=== PATIENT | female | born 1945 | race American Indian/Alaskan Native ===

== ENCOUNTER → 2017-01-06 | Outpatient (CLI) | payer MEDICARE ==
[~2017-01-06] MED LIST: ALBU18HF INH; BUDE10.2 INH; LINA145C PO; LOVA20TA2 PO; LOVA40TA2 PO
== END | disposition home or self-care (01) ==
LOC: CFH 08:06
PROVIDERS: ATTEND Internal Medicine
DX: Z13.820 Encounter for screening for osteoporosis (principal); M81.0 Age-related osteoporosis without current pathological fracture; E78.5 Hyperlipidemia, unspecified; J44.9 Chronic obstructive pulmonary disease, unspecified; E03.9 Hypothyroidism, unspecified; E87.5 Hyperkalemia; Z72.0 Tobacco use
CPT/HCPCS: 77080

== ENCOUNTER → 2017-07-25 | Outpatient (CLI) | payer MEDICARE ==
[~2017-07-25] MED LIST changes: +CALC-545 PO; +CHOL2000 PO; +GABA300C10 PO
== END ==
LOC: CFH 09:50
PROVIDERS: ATTEND Physician Assistant
DX: J84.10 Pulmonary fibrosis, unspecified (principal); M54.89 Other dorsalgia; M81.0 Age-related osteoporosis without current pathological fracture; E78.5 Hyperlipidemia, unspecified; D58.2 Other hemoglobinopathies; Z72.0 Tobacco use; Z13.220 Encounter for screening for lipoid disorders; Z12.11 Encounter for screening for malignant neoplasm of colon; Z12.39 Encounter for other screening for malignant neoplasm of breast; Z12.4 Encounter for screening for malignant neoplasm of cervix; K59.00 Constipation, unspecified; I34.1 Nonrheumatic mitral (valve) prolapse; E87.5 Hyperkalemia; E03.9 Hypothyroidism, unspecified; E83.110 Hereditary hemochromatosis; M25.539 Pain in unspecified wrist; Z09 Encounter for follow-up examination after completed treatment for conditions other than malignant neoplasm; J18.9 Pneumonia, unspecified organism; J44.1 Chronic obstructive pulmonary disease with (acute) exacerbation
CPT/HCPCS: 71020

== ENCOUNTER 2018-01-02 05:42 | Emergency (ER) | payer MEDICARE ==
[~2018-01-02] VITALS: Ht 157.5 cm; Wt 55.0 kg
[~2018-01-02 05:42] MED LIST changes: +ALBU2.5V NPPB; +AZIT500T5 PO; +ERGO500017 PO; +FENT1PAT75 TD; +FLUT1AER INH; +METH750T2 PO; +NICO-486 TD; +POLY17PO5 PO; +PRED10TA PO; +TIOT18CA INH; +TRAM50TA2 PO
[2018-01-02] MEDS ORDERED: HYDROmorphone 1 MG/ML, 1ML IV ONE (06:00)
[2018-01-02] MEDS ORDERED: SODIUM CHLORIDE 0.9%, 500ML IVBOLUS ONE (06:00)
[2018-01-02] MEDS ORDERED: HYDROmorphone 2 MG/ML, 1ML ONE (06:02)
[2018-01-02 06:13] LABS: MEAN CORPUSCULAR HEMOGLOBIN 32.9 pg (27.0-34.8); MEAN CORPUSCULAR HGB CONC 33.8 g/dL (32.4-35.8); MEAN CORPUSCULAR VOLUME 97.3 fL (80-100); MEAN PLATELET VOLUME 8.2 fL (7.4-10.4); PLATELET COUNT 414 x10^3/uL (130-400); RED BLOOD COUNT 4.63 x10^6/uL (3.82-5.3); RED CELL DISTRIBUTION WIDTH 13.9 % (9.6-15.2)
[2018-01-02 06:24] LABS: ALBUMIN 3.2 g/dL (3.4-5.0); ANION GAP 7 mmol/L (5-15); CALCIUM 9.1 mg/dL (8.5-10.1); CHLORIDE 108 mmol/L (98-107); CREATININE 0.84 mg/dL (0.55-1.02)
[2018-01-02 06:26] LABS: MD YES
[2018-01-02 06:27] LABS: LYMPH#(MANUAL) 0.55 x10^3/uL (1-3.4); LYMPHS% (MANUAL) 3 % (22-44); MONOS% (MANUAL) 12 % (2-9); SEG#(MANUAL) 15.56 x10^3/uL (1.8-6.8); SEGS% (MANUAL) 85 % (42-75)
[2018-01-02 06:28] LABS: <PLATELET ESTIMATE> INCREASED; <RBC MORPHOLOGY> NORMAL; LARGE PLATELETS 1+
[2018-01-02 08:00] VITALS: BP 105/51
[2018-01-03] MEDS ORDERED: LINA145C PO (10:32)
[2018-01-09] MEDS ORDERED: AMOX1TAB12 PO (12:42)
[2018-01-09] MEDS ORDERED: DOXY100T PO (12:42)
[2018-01-09] MEDS ORDERED: OMEP-110 PO (12:42)
== END 2018-01-02 09:48 | disposition home or self-care (01) ==
LOC: ED 07:21 → UNDOADMIN 07:40 → EDIP 07:40 → 3NW 08:15 → EDIP 10:33
DX: S22.9XXA Fracture of bony thorax, part unspecified, initial encounter for closed fracture (principal); X58.XXXA Exposure to other specified factors, initial encounter; Y93.89 Activity, other specified; Y92.89 Other specified places as the place of occurrence of the external cause; Y99.8 Other external cause status
CPT/HCPCS: 36415; 71045; 72128; 72131; 80048; 82040; 85025; 96374; 99285; J1170; J7040; 96361

== ENCOUNTER → 2018-01-12 | Outpatient (CLI) | payer MEDICARE ==
[~2018-01-12] MED LIST changes: +AMOX1TAB12 PO; +DOXY100T PO; +OMEP-110 PO
== END | disposition home or self-care (01) ==
LOC: CFH 10:20
PROVIDERS: ATTEND Nurse Practitioner Primary Care
DX: J18.9 Pneumonia, unspecified organism (principal); M54.89 Other dorsalgia; M81.0 Age-related osteoporosis without current pathological fracture; E78.5 Hyperlipidemia, unspecified; D58.2 Other hemoglobinopathies; K59.00 Constipation, unspecified; R00.2 Palpitations; E87.5 Hyperkalemia; I34.1 Nonrheumatic mitral (valve) prolapse; E03.9 Hypothyroidism, unspecified; M25.539 Pain in unspecified wrist; E83.110 Hereditary hemochromatosis; J44.1 Chronic obstructive pulmonary disease with (acute) exacerbation; R06.83 Snoring; Z98.61 Coronary angioplasty status
CPT/HCPCS: 71046

== ENCOUNTER → 2018-03-02 | Outpatient (CLI) | payer MEDICARE | END | disposition home or self-care (01) | LOC: CFH 08:25 | PROVIDERS: ATTEND Physician Assistant | DX: J18.9 Pneumonia, unspecified organism (principal); M54.89 Other dorsalgia; M81.0 Age-related osteoporosis without current pathological fracture; E78.5 Hyperlipidemia, unspecified; D58.2 Other hemoglobinopathies; J44.9 Chronic obstructive pulmonary disease, unspecified; K59.00 Constipation, unspecified; I34.1 Nonrheumatic mitral (valve) prolapse; E87.5 Hyperkalemia; E03.9 Hypothyroidism, unspecified; E83.110 Hereditary hemochromatosis; M25.539 Pain in unspecified wrist; Z72.0 Tobacco use; Z99.81 Dependence on supplemental oxygen; W18.30XD Fall on same level, unspecified, subsequent encounter | CPT/HCPCS: 71046 ==

== ENCOUNTER 2018-04-15 18:32 | Inpatient (IN) | payer MEDICARE ==
[~2018-04-15] VITALS: Ht 154.9 cm; Wt 51.6 kg
[2018-04-15] MEDS ORDERED: SODIUM CHLORIDE 0.9% 1,000 ML IV ONE (18:39)
[2018-04-15] MEDS ORDERED: PLEASE ENTER HEIGHT AND WEIGHT MC SCH (19:00)
[2018-04-15] MEDS ORDERED: ALBUTEROL/IPRATROPIUM 2.5MG/0.5MG, 3 ML NPPB ONE (19:00)
[2018-04-15] MEDS ORDERED: SODIUM CHLORIDE FLUSH 10ML SYR IVF ONE (19:00)
[2018-04-15] MEDS ORDERED: methylPREDNISolone SOD SUCC 125 MG/2 ML IVP ONE (19:00)
[2018-04-15 19:11] LABS: BASOPHILS # (AUTO) 0.06 x10^3/uL (0-0.1); BASOPHILS % (AUTO) 1 % (0-1); EOSINOPHILS # (AUTO) 0.67 x10^3/uL (0-0.4); EOSINOPHILS % (AUTO) 11 % (1-7); LYMPHOCYTES # (AUTO) 1.62 x10^3/uL (1-3.4); LYMPHOCYTES % (AUTO) 25 % (22-44); MD NO; MEAN CORPUSCULAR HEMOGLOBIN 28.5 pg (27.0-34.8); MEAN CORPUSCULAR HGB CONC 32.7 g/dL (32.4-35.8); MEAN PLATELET VOLUME 8.8 fL (7.4-10.4); MONOCYTES # (AUTO) 0.47 x10^3/uL (0.2-0.8); MONOCYTES % (AUTO) 7 % (2-9); NEUTROPHILS # (AUTO) 3.56 x10^3/uL (1.8-6.8); NEUTROPHILS % (AUTO) 56 % (42-75); PLATELET COUNT 335 x10^3/uL (130-400); RED BLOOD COUNT 4.75 x10^6/uL (3.82-5.3); RED CELL DISTRIBUTION WIDTH 20.5 % (9.6-15.2)
[2018-04-15 19:20] LABS: INTERNATIONAL NORMALIZED RATIO 1.01 (0.93-1.1); PROTHROMBIN TIME 10.4 Seconds (9.6-11.5)
[2018-04-15 19:27] LABS: ALANINE AMINOTRANSFERASE 23 U/L (12-78); ALBUMIN 3.6 g/dL (3.4-5.0); ANION GAP 8 mmol/L (5-15); CALCIUM 9.1 mg/dL (8.5-10.1); CHLORIDE 107 mmol/L (98-107)
[2018-04-15 19:31] LABS: ALKALINE PHOSPHATASE 86 U/L (45-117); BILIRUBIN,TOTAL 0.3 mg/dL (0.2-1.0); TOTAL PROTEIN 7.1 g/dL (6.4-8.2); TROPONIN I < 0.015 ng/mL (0.000-0.045)
[2018-04-15] MEDS ORDERED: methylPREDNISolone SOD SUCC 125 MG/2 ML ONE (19:31)
[2018-04-15] MEDS ORDERED: ATOR20TA9 PO (20:03)
[2018-04-15 21:49] VITALS: BP 112/96
[2018-04-15] MEDS ORDERED: ONDANSETRON 2MG/ML, 2ML IVPush PRN (23:00)
[2018-04-15] MEDS ORDERED: hydrALAzine 20 MG/ML, 1ML IVPush PRN (23:00)
[2018-04-15] MEDS ORDERED: POLYETHYLENE GLYCOL 17 GM PACKET PO PRN (23:00)
[2018-04-15] MEDS ORDERED: ALBUTEROL SULFATE 2.5 MG/3 ML NPPB PRN (23:00)
[2018-04-15] MEDS ORDERED: ONDANSETRON ODT 4 MG PO PRN (23:00)
[2018-04-15] MEDS ORDERED: DOCUSATE 100 MG CAPSULE PO PRN (23:00)
[2018-04-15] MEDS ORDERED: FUROSEMIDE 20 MG/2 ML IV ONE (23:00)
[2018-04-15] MEDS ORDERED: PROMETHAZINE 25 MG/ML, 1ML IM PRN (23:00)
[2018-04-15] MEDS ORDERED: BISACODYL 10 MG SUPP PR PRN (23:00)
[2018-04-15] MEDS ORDERED: ENALAPRILAT 1.25 MG/ML, 2ML IVPush PRN (23:00)
[2018-04-15 23:20] LABS: FREE T4 (FREE THYROXINE) 1.38 ng/dL (0.76-1.46); THYROID STIMULATING HORMONE 0.936 mIU/L (0.358-3.740)
[2018-04-15] MEDS: DOXYCYCLINE 100MG TABLET PO SCH (23:26)
[2018-04-15] MEDS: methylPREDNISolone SOD SUCC 125 MG/2 ML IVPush SCH (23:26)
[2018-04-15] MEDS: HEPARIN 5,000 UNITS/ML, 1ML SQ SCH (23:27)
[2018-04-15 23:29] LABS: HEMOGLOBIN A1C 5.8 % (4.2-6.3)
[2018-04-15 23:58] LABS: MICROSCOPIC NOT IND
[2018-04-16 00:05] LABS: CULTURE INDICATED? NO
[2018-04-16] MEDS: NICOTINE 14MG/24 HR PATCH.TD24 TD SCH ×2 (00:17→23:35)
[2018-04-16 02:31] VITALS: BP 111/71
[2018-04-16] MEDS: methylPREDNISolone SOD SUCC 125 MG/2 ML IVPush SCH ×4 (04:31→23:35)
[2018-04-16 05:15] LABS: BASOPHILS % (AUTO) 0 % (0-1); EOSINOPHILS % (AUTO) 0 % (1-7); LYMPHOCYTES # (AUTO) 0.33 x10^3/uL (1-3.4); LYMPHOCYTES % (AUTO) 8 % (22-44); MD NO; MEAN CORPUSCULAR HEMOGLOBIN 28.4 pg (27.0-34.8); MEAN CORPUSCULAR VOLUME 86.3 fL (80-100); MEAN PLATELET VOLUME 8.9 fL (7.4-10.4); MONOCYTES # (AUTO) 0.02 x10^3/uL (0.2-0.8); MONOCYTES % (AUTO) 1 % (2-9); NEUTROPHILS # (AUTO) 3.68 x10^3/uL (1.8-6.8); NEUTROPHILS % (AUTO) 91 % (42-75); PLATELET COUNT 329 x10^3/uL (130-400); RED BLOOD COUNT 4.55 x10^6/uL (3.82-5.3); RED CELL DISTRIBUTION WIDTH 20.8 % (9.6-15.2)
[2018-04-16 05:24] LABS: ALBUMIN 3.3 g/dL (3.4-5.0); ANION GAP 10 mmol/L (5-15); CHLORIDE 108 mmol/L (98-107)
[2018-04-16 05:30] LABS: ALANINE AMINOTRANSFERASE 21 U/L (12-78); ALKALINE PHOSPHATASE 76 U/L (45-117); BILIRUBIN,TOTAL 0.3 mg/dL (0.2-1.0); CHOL/HDL RATIO 2.8; CHOLESTEROL, TOTAL 158 mg/dL (140-239); CREATININE 0.72 mg/dL (0.55-1.02); HDL CHOL % 35 % (28-40); HDL CHOLESTEROL (DIRECT) 56 mg/dL (40-60); LDL CHOLESTEROL,CALCULATED 90 mg/dL (54-169); LDL/HDL RATIO 1.6 (0.5-3.0); TOTAL PROTEIN 6.8 g/dL (6.4-8.2); TRIGLYCERIDES 59 mg/dL (50-200); VLDL CHOLESTEROL 12 mg/dL (0-25)
[2018-04-16] MEDS: ALBUTEROL/IPRATROPIUM 2.5MG/0.5MG, 3 ML NPPB SCH ×4 (07:10→20:08)
[2018-04-16 07:29] VITALS: BP 96/62
[2018-04-16] MEDS: HEPARIN 5,000 UNITS/ML, 1ML SQ SCH ×4 (07:30→21:33)
[2018-04-16] MEDS: FAMOTIDINE 20 MG/2 ML IVPush SCH ×2 (08:58→21:33)
[2018-04-16] MEDS: DOXYCYCLINE 100MG TABLET PO SCH ×2 (08:59→21:33)
[2018-04-16] MEDS: CHOLECALCIFEROL 1,000 UNIT TABLET PO SCH (08:59)
[2018-04-16] MEDS: FLUTICASONE/VILANTEROL 100-25MCG/INH INH SCH (11:33)
[2018-04-16] MEDS: CALCIUM CARBONATE 500 MG TAB.CHEW PO SCH (11:56)
[2018-04-16 12:46] VITALS: BP 110/62
[2018-04-16] MEDS: POTASSIUM CHLORIDE 20 MEQ PACKET PO SCH (17:59)
[2018-04-16 19:56] VITALS: BP 101/62
[2018-04-16] MEDS: ATORVASTATIN 20 MG TABLET PO SCH (21:33)
[2018-04-17 01:22] VITALS: BP 105/59
[2018-04-17 04:31] LABS: ANION GAP 8 mmol/L (5-15); CALCIUM 8.7 mg/dL (8.5-10.1); CHLORIDE 109 mmol/L (98-107)
[2018-04-17 04:32] LABS: CREATININE 0.61 mg/dL (0.55-1.02)
[2018-04-17] MEDS: methylPREDNISolone SOD SUCC 125 MG/2 ML IVPush SCH (05:13)
[2018-04-17] MEDS: ACETAMINOPHEN 325 MG TABLET PO PRN ×2 (05:13→18:22)
[2018-04-17] MEDS: ALBUTEROL/IPRATROPIUM 2.5MG/0.5MG, 3 ML NPPB SCH ×4 (06:00→19:39)
[2018-04-17 07:01] VITALS: BP 100/61
[2018-04-17] MEDS: FAMOTIDINE 20 MG/2 ML IVPush SCH ×2 (10:14→19:51)
[2018-04-17] MEDS: DOXYCYCLINE 100MG TABLET PO SCH ×2 (10:14→19:52)
[2018-04-17] MEDS: HEPARIN 5,000 UNITS/ML, 1ML SQ SCH ×2 (10:15→18:21)
[2018-04-17] MEDS: CHOLECALCIFEROL 1,000 UNIT TABLET PO SCH (10:15)
[2018-04-17] MEDS: POTASSIUM CHLORIDE 20 MEQ PACKET PO SCH ×2 (10:16→17:19)
[2018-04-17] MEDS: FLUTICASONE/VILANTEROL 100-25MCG/INH INH SCH (10:17)
[2018-04-17 13:33] VITALS: BP 103/63
[2018-04-17] MEDS: CALCIUM CARBONATE 500 MG TAB.CHEW PO SCH (13:38)
[2018-04-17 19:50] VITALS: BP 100/58
[2018-04-17] MEDS: ATORVASTATIN 20 MG TABLET PO SCH (19:52)
[2018-04-17] MEDS: NICOTINE 14MG/24 HR PATCH.TD24 TD SCH (23:31)
[2018-04-18] MEDS: HEPARIN 5,000 UNITS/ML, 1ML SQ SCH ×2 (02:00→10:21)
[2018-04-18 03:49] VITALS: BP 100/59
[2018-04-18] MEDS: FAMOTIDINE 20 MG/2 ML IVPush SCH (05:29)
[2018-04-18] MEDS: ALBUTEROL/IPRATROPIUM 2.5MG/0.5MG, 3 ML NPPB SCH ×2 (06:40→10:20)
[2018-04-18 07:20] VITALS: BP 108/70
[2018-04-18] MEDS: POTASSIUM CHLORIDE 20 MEQ PACKET PO SCH (08:46)
[2018-04-18] MEDS: DOXYCYCLINE 100MG TABLET PO SCH (08:47)
[2018-04-18] MEDS: CHOLECALCIFEROL 1,000 UNIT TABLET PO SCH (08:47)
[2018-04-18] MEDS: FLUTICASONE/VILANTEROL 100-25MCG/INH INH SCH (08:47)
[2018-04-18] MEDS ORDERED: DOXY100T PO (08:54)
[2018-04-18] MEDS ORDERED: ALBU2.5V NPPB (08:54)
[2018-04-18] MEDS ORDERED: PRED20TA PO (08:54)
[2018-04-18] MEDS ORDERED: ALBU18HF INFIL (08:55)
[2018-04-18] MEDS: CALCIUM CARBONATE 500 MG TAB.CHEW PO SCH (12:00)
[2018-04-18 14:00] VITALS: BP 120/74
== END 2018-04-18 15:06 | disposition home health service (06) | DRG 190 ==
LOC: ED 21:03 → EDIP 21:49 → 3NW 21:53
PROVIDERS: ADMIT Internal Medicine; ATTEND Internal Medicine
DX: J44.1 Chronic obstructive pulmonary disease with (acute) exacerbation (principal); E43 Unspecified severe protein-calorie malnutrition; J96.10 Chronic respiratory failure, unspecified whether with hypoxia or hypercapnia; Z99.81 Dependence on supplemental oxygen; F17.200 Nicotine dependence, unspecified, uncomplicated; Z88.6 Allergy status to analgesic agent; Z88.8 Allergy status to other drugs, medicaments and biological substances; M54.9 Dorsalgia, unspecified; G89.29 Other chronic pain; Z68.21 Body mass index [BMI] 21.0-21.9, adult; E78.5 Hyperlipidemia, unspecified; Z87.81 Personal history of (healed) traumatic fracture; Z90.710 Acquired absence of both cervix and uterus; Z90.49 Acquired absence of other specified parts of digestive tract; Z53.20 Procedure and treatment not carried out because of patient's decision for unspecified reasons
CPT/HCPCS: 36415; 36600; 71045; 80048; 80053; 80061; 81003; 82803; 83036; 83605; 83735; 83880; 84439; 84443; 84484; 85025; 85610; 87040; 93005; 94640; 94644; 96361; 96374; J1644; J7613; J7620; J1940; J2930; J7030; J7512; S0028

== ENCOUNTER 2018-11-04 20:00 | Emergency (ER) | payer MEDICARE, MEDICAID ==
[~2018-11-04 20:00] MED LIST changes: -ALBUTEROL/IPRATROPIUM 2.5MG/0.5MG, 3 ML NPPB ONE; -ALBUTEROL/IPRATROPIUM 2.5MG/0.5MG, 3 ML ONE; -SODIUM CHLORIDE FLUSH 10ML SYR IVF ONE; -methylPREDNISolone SOD SUCC 125 MG/2 ML IVP ONE; -methylPREDNISolone SOD SUCC 125 MG/2 ML ONE
== END 2018-11-04 20:05 | disposition home or self-care (01) ==
LOC: ED 20:02
DX: Z02.9 Encounter for administrative examinations, unspecified (principal)
CPT/HCPCS: 94640

== ENCOUNTER → 2018-11-04 | Emergency (ER) | payer MEDICARE, MEDICAID ==
[~2018-11-04] VITALS: Ht 162.6 cm; Wt 50.0 kg
[~2018-11-04] MED LIST changes: +ALBU18HF INFIL; +ALBUTEROL/IPRATROPIUM 2.5MG/0.5MG, 3 ML NPPB ONE; +ALBUTEROL/IPRATROPIUM 2.5MG/0.5MG, 3 ML ONE; +ATOR20TA37 PO; +PRED20TA PO; +SODIUM CHLORIDE FLUSH 10ML SYR IVF ONE; +methylPREDNISolone SOD SUCC 125 MG/2 ML IVP ONE; +methylPREDNISolone SOD SUCC 125 MG/2 ML ONE
--- NOTE | 2018-11-04 20:07 | NUR ---
ASSUMED CARE OF PATIENT. PATIENT BIB [facility] FOR SOB. PT WAS PUT ON HOSPICE TODAY FOR HER COPD. PT NOW DOES NOT WANT TO BE ON HOSPICE. EMS FOUND HER ON 15L NC AT HOME. PULSE OX ON. CRA ON. NSR NOTED. PT SEEN BY CHATO MATT. RT IN ROOM. PT TAKLING IN ONE TO TWO SENTENCES. WILL CONTINUE TO MONITOR.
[2018-11-04 20:25] LABS: BASOPHILS # (AUTO) 0.06 x10^3/uL (0-0.1); BASOPHILS % (AUTO) 1 % (0-1); EOSINOPHILS # (AUTO) 0.54 x10^3/uL (0-0.4); EOSINOPHILS % (AUTO) 5 % (1-7); LYMPHOCYTES # (AUTO) 0.91 x10^3/uL (1-3.4); LYMPHOCYTES % (AUTO) 9 % (22-44); MD NO; MEAN CORPUSCULAR HEMOGLOBIN 31.8 pg (27.0-34.8); MEAN CORPUSCULAR HGB CONC 33.2 g/dL (32.4-35.8); MEAN CORPUSCULAR VOLUME 95.9 fL (80-100); MEAN PLATELET VOLUME 8.5 fL (7.4-10.4); MONOCYTES # (AUTO) 0.61 x10^3/uL (0.2-0.8); MONOCYTES % (AUTO) 6 % (2-9); NEUTROPHILS # (AUTO) 7.95 x10^3/uL (1.8-6.8); NEUTROPHILS % (AUTO) 79 % (42-75); PLATELET COUNT 363 x10^3/uL (130-400); RED BLOOD COUNT 4.48 x10^6/uL (3.82-5.3); RED CELL DISTRIBUTION WIDTH 15.4 % (9.6-15.2)
[2018-11-04 20:36] LABS: ALBUMIN 3.6 g/dL (3.4-5.0); ANION GAP 7 mmol/L (5-15); CALCIUM 9.8 mg/dL (8.5-10.1); CHLORIDE 106 mmol/L (98-107); CREATININE 0.62 mg/dL (0.55-1.02)
[2018-11-04 20:40] LABS: TROPONIN I 0.052 ng/mL (0.000-0.045)
--- NOTE | 2018-11-04 21:03 | NUR ---
PT RESTING IN ROOM. PULSE OX ON. OXYGEN ON. PT DOES NOT KNOW WHAT MEDICATIONS SHE IS ONE. PT IS A POOR HISTORIAN. CALL LIGHT IN PLACE. WILL CONTINUE TO MONITOR.
--- NOTE | 2018-11-04 21:33 | NUR ---
PT RESTING IN ROOM. REGULAR RESP. NO ACUTE DISTRESS NOTED. CALL LIGHT IN PLACE. WILL CONTINUE TO MONITOR.
--- NOTE | 2018-11-04 21:51 | NUR ---
SPOKE WITH ANGELINA FROM HOSPICE. PT IS TO CONTINUE HOSPICE. PT WILL BE D/C'D HOME. HOSPICE NURSE WILL MEET PATIENT AT HOME. ANGELINA'S NUMBER: [phone]
--- NOTE | 2018-11-04 22:09 | NUR ---
DR ORTIZ IN ROOM
--- NOTE | 2018-11-04 22:16 | NUR ---
PT WENT TO RADIOLOGY
--- NOTE | 2018-11-04 22:56 | NUR ---
PT TO BE DISCHARGED HOME. HYDRO OPERATOR AWARE. NURSE WILL MEET PATIENT AT HOME, CRISTINA TO DIGITAL EDITOR PATIENT AT [phone]
--- NOTE | 2018-11-04 23:08 | NUR ---
DR ORTIZ AMBULATED PATIENT AROUND ROOM. PT READY FOR DISCHRAGE. ANGELINA FROM HOSPICE IS AWARE.
[2018-11-04 23:19] VITALS: BP 121/66
== END | disposition home or self-care (01) ==
LOC: ED 23:15
DX: J44.1 Chronic obstructive pulmonary disease with (acute) exacerbation (principal); F41.1 Generalized anxiety disorder; Z87.01 Personal history of pneumonia (recurrent); E78.5 Hyperlipidemia, unspecified; Z90.49 Acquired absence of other specified parts of digestive tract; Z90.710 Acquired absence of both cervix and uterus
CPT/HCPCS: 36415; 71045; 73502; 80048; 82040; 84484; 85025; 93005; 94640; 96374; 99284; J2930; J7620

== ENCOUNTER 2019-03-03 03:25 | Inpatient (IN) | payer MEDICARE, MEDICAID ==
[~2019-03-03] VITALS: Ht 152.4 cm; Wt 56.9 kg
--- NOTE | 2019-03-03 03:40 | NUR ---
BROUGHT IN BY DANASA FROM HOME.PER REPORT PATIENT NOT FEELING WELL THIS AFTERNOON. TONIGHT HAVING HARD TIME BREATHING. 72 % RA UPON EMS ARRIVAL. 2 DUONEB GIVEN HOSE INSPECTOR.
--- NOTE | 2019-03-03 03:53 | NUR ---
ERP DECIDED TO INTUBATE PATIENT. SUCC AND ETOMIDATE GIVEN.
--- NOTE | 2019-03-03 03:57 | NUR ---
INTUBATION DONE. OG PLACED AND HOOKED TO LOW SUCTION.
[2019-03-03] MEDS ORDERED: ALBUTEROL/IPRATROPIUM 2.5MG/0.5MG, 3 ML ONE (04:00)
[2019-03-03] MEDS ORDERED: methylPREDNISolone SOD SUCC 125 MG/2 ML IVP ONE (04:00)
[2019-03-03] MEDS ORDERED: SODIUM CHLORIDE 0.9% 1,000ML IVBOLUS ONE ×2 (04:00→05:30)
[2019-03-03] MEDS ORDERED: ALBUTEROL SULFATE 2.5MG/0.5ML ONE (04:00)
[2019-03-03] MEDS ORDERED: PIPERACILLIN/TAZO/PMX 3.375GM 50 ML IVPB ONE (04:00)
[2019-03-03] MEDS ORDERED: ALBUTEROL SULFATE 2.5 MG/3 ML NPPB ONE (04:00)
[2019-03-03] MEDS ORDERED: VANCOMYCIN PER PHARMACY IV ONE (04:00)
--- NOTE | 2019-03-03 04:15 | NUR ---
PATIENT HYPOTENSIVE. 1 LITER NS BOLUS INFUSING PER ERP ORDER.
[2019-03-03 04:18] LABS: BASOPHILS # (AUTO) 0.05 x10^3/uL (0-0.1); BASOPHILS % (AUTO) 1 % (0-1); EOSINOPHILS # (AUTO) 0.64 x10^3/uL (0-0.4); EOSINOPHILS % (AUTO) 6 % (1-7); LYMPHOCYTES # (AUTO) 2.13 x10^3/uL (1-3.4); LYMPHOCYTES % (AUTO) 21 % (22-44); MD NO; MEAN CORPUSCULAR HEMOGLOBIN 32.4 pg (27.0-34.8); MEAN CORPUSCULAR HGB CONC 32.5 g/dL (32.4-35.8); MEAN CORPUSCULAR VOLUME 99.7 fL (80-100); MEAN PLATELET VOLUME 8.5 fL (7.4-10.4); MONOCYTES # (AUTO) 0.76 x10^3/uL (0.2-0.8); MONOCYTES % (AUTO) 8 % (2-9); NEUTROPHILS # (AUTO) 6.55 x10^3/uL (1.8-6.8); NEUTROPHILS % (AUTO) 65 % (42-75); PLATELET COUNT 362 x10^3/uL (130-400); RED BLOOD COUNT 4.77 x10^6/uL (3.82-5.3); RED CELL DISTRIBUTION WIDTH 15.3 % (9.6-15.2)
[2019-03-03] MEDS ORDERED: PIPERACILLIN/TAZO/PMX 3.375GM 50 ML ONE (04:24)
[2019-03-03 04:29] LABS: ALANINE AMINOTRANSFERASE 15 U/L (12-78); ALBUMIN 3.6 g/dL (3.4-5.0); ANION GAP 2 mmol/L (5-15); CALCIUM 9.3 mg/dL (8.5-10.1); CHLORIDE 105 mmol/L (98-107); CREATININE 0.69 mg/dL (0.55-1.02)
[2019-03-03] MEDS ORDERED: VANCOMYCIN PMX 1GM/200ML 200 ML IV ONE (04:30)
--- NOTE | 2019-03-03 04:30 | NUR ---
LORA PLACED WITH MINIMAL URINE OUTPUT.
[2019-03-03 04:33] LABS: ALKALINE PHOSPHATASE 83 U/L (45-117); BILIRUBIN,TOTAL 0.6 mg/dL (0.2-1.0); TROPONIN I < 0.015 ng/mL (0.000-0.045)
[2019-03-03] MEDS ORDERED: CEFTRIAXONE PMX 2GM/50ML 50 ML IV SCH (05:00)
--- NOTE | 2019-03-03 05:00 | NUR ---
STILL HYPOTENSIVE. ERP AWARE. OTHER 1 LITER NS BOLUS ORDERED. IF BP DID NOT IMPROVE, WILL CHANGE PROPOFOL TO VERSED PER ERP.
[2019-03-03] MEDS ORDERED: SUCCINYLCHOLINE 20 MG/ML, 10ML IVPush ONE (05:30)
[2019-03-03] MEDS ORDERED: AZITHROMYCIN 500 MG in SODIUM CHLORIDE 0.9% 250 ML IV SCH (05:30)
[2019-03-03] MEDS ORDERED: ETOMIDATE 20 MG/10 ML IVPush ONE (05:30)
[2019-03-03] MEDS ORDERED: PROPOFOL 100 ML IV PRN ×2 (05:30→05:52)
--- NOTE | 2019-03-03 05:30 | NUR ---
PATIENT STILL HYPOTENSIVE. VERSED DRIP ORDERED.
[2019-03-03] MEDS ORDERED: CEFTRIAXONE PMX 1GM/50ML 0 ML ONE (05:34)
[2019-03-03] MEDS ORDERED: BISACODYL 10 MG SUPP PR PRN (06:00)
[2019-03-03] MEDS ORDERED: DEXTROSE 50%, 50ML SYRINGE IVPush PRN (06:00)
[2019-03-03] MEDS: ALBUTEROL/IPRATROPIUM 2.5MG/0.5MG, 3 ML INLINE SCH ×5 (06:00→22:27)
[2019-03-03] MEDS ORDERED: LIDOCAINE-MPF 1%, 2ML ENDO PRN (06:00)
[2019-03-03] MEDS ORDERED: SENNA 176 MG/5 ML ORAL SOL NG PRN (06:00)
[2019-03-03] MEDS ORDERED: GLUCAGON 1 MG IM PRN (06:00)
[2019-03-03] MEDS ORDERED: DEXTROSE 4 GM TAB.CHEW PO PRN (06:00)
[2019-03-03] MEDS ORDERED: MIDAZOLAM HCL 50 MG in SODIUM CHLORIDE 0.9% 240 ML IV PRN (06:00)
[2019-03-03] MEDS ORDERED: SENNA/DOCUSATE TABLET NG PRN (06:00)
[2019-03-03] MEDS ORDERED: PHARMACY MAY ADJ FOR RENAL FX MC SCH (06:00)
[2019-03-03] MEDS ORDERED: LACTULOSE 20 GM/30 ML UDC NG PRN (06:00)
--- NOTE | 2019-03-03 06:00 | NUR ---
BED ASSIGNED. REPORT TO CARMEL YOUNG.
[2019-03-03] MEDS ORDERED: PIPERACILLIN/TAZO/PMX 3.375GM 50 ML IV SCH (06:30)
[2019-03-03] MEDS ORDERED: ZOSYN PER PHARMACY MC PRN (06:30)
[2019-03-03] MEDS ORDERED: LINEZOLID PMX 600MG/300ML 300 ML IV SCH (06:30)
[2019-03-03] MEDS ORDERED: INSULIN LISPRO 100 UNITS/ML, PEN SQ-INSULIN SCH (07:00)
[2019-03-03] MEDS: AMPICILLIN/SULBACTAM 3 GM in SODIUM CHLORIDE 0.9% 100 ML IV SCH ×3 (07:48→18:30)
[2019-03-03] MEDS: methylPREDNISolone SOD SUCC 125 MG/2 ML IVPush SCH ×3 (08:08→20:36)
[2019-03-03] MEDS: HEPARIN 5,000 UNITS/ML, 1ML SQ SCH ×2 (08:09→16:37)
[2019-03-03] MEDS: SODIUM CHLORIDE FLUSH 10ML SYR IVF SCH ×2 (08:10→21:00)
[2019-03-03] MEDS: FAMOTIDINE 20 MG/2 ML IVPush SCH ×2 (08:10→21:00)
[2019-03-03] MEDS ORDERED: ETOMIDATE 20 MG/10 ML ONE (08:16)
[2019-03-03] MEDS ORDERED: SUCCINYLCHOLINE 20 MG/ML, 10ML ONE (08:16)
[2019-03-03] MEDS ORDERED: PROPOFOL 10 MG/ML, 100ML IV ONE (08:16)
[2019-03-03] MEDS ORDERED: NOREPINEPHRINE 4 MG in SODIUM CHLORIDE 0.9% 246 ML IV PRN (08:30)
[2019-03-03] MEDS: BUDESONIDE 0.5 MG/2 ML INHA INH SCH ×2 (09:00→22:27)
[2019-03-03] MEDS ORDERED: SODIUM CHLORIDE 0.9% 1,000ML IV ONE (09:30)
[2019-03-03] MEDS: INSULIN LISPRO 100 UNITS/ML, PEN SQ-INSULIN SCH ×3 (10:00→21:00)
[2019-03-03] MEDS: DEXMEDETOMIDINE 200 MCG in SODIUM CHLORIDE 0.9% 48 ML IV PRN ×2 (10:34→19:57)
[2019-03-03 10:51] LABS: TROPONIN I < 0.015 ng/mL (0.000-0.045)
--- NOTE | 2019-03-03 12:15 | NUR ---
TF RECOMMENDATION IF NEEDED: Promote @ 65 ml/hr; IF NO IVF 60 ml water flush q 6 hrs recommended. Addendum: 03/03/19 at [address] Amended: Links added.
[2019-03-03 12:57] LABS: AMPHETAMINE SCREEN, URINE Negative (Negative); BARBITURATE SCREEN, URINE Negative (Negative); BENZODIAZEPINE SCREEN, URINE Positive (Negative); CANNABINOID SCREEN, URINE Negative (Negative); COCAINE SCREEN, URINE Negative (Negative); METHADONE SCREEN, URINE Negative (Negative); OPIATE SCREEN, URINE Positive (Negative)
[2019-03-03] MEDS: SODIUM CHLORIDE 0.9% 1,000 ML IV SCH ×2 (13:45→22:33)
[2019-03-03] MEDS: FENTANYL PF 100 MCG/2ML IVPush PRN ×2 (19:33→20:18)
[2019-03-03] MEDS ORDERED: LORazepam 2 MG/ML, 1ML ONE (20:55)
[2019-03-03] MEDS ORDERED: LORazepam 2 MG/ML, 1ML IVPush ONE (21:30)
[2019-03-03] MEDS ORDERED: LORazepam 2 MG/ML, 1ML IVPush PRN (21:30)
[2019-03-04] MEDS: HEPARIN 5,000 UNITS/ML, 1ML SQ SCH ×4 (00:10→23:26)
[2019-03-04] MEDS: AMPICILLIN/SULBACTAM 3 GM in SODIUM CHLORIDE 0.9% 100 ML IV SCH ×4 (00:42→19:25)
[2019-03-04] MEDS: DEXMEDETOMIDINE 200 MCG in SODIUM CHLORIDE 0.9% 48 ML IV PRN (00:42)
[2019-03-04] MEDS: methylPREDNISolone SOD SUCC 125 MG/2 ML IVPush SCH ×2 (01:59→07:42)
[2019-03-04] MEDS: ALBUTEROL/IPRATROPIUM 2.5MG/0.5MG, 3 ML INLINE SCH ×2 (02:18→06:43)
[2019-03-04] MEDS: INSULIN LISPRO 100 UNITS/ML, PEN SQ-INSULIN SCH ×4 (03:10→20:39)
[2019-03-04 04:07] VITALS: BP 107/62
[2019-03-04 04:12] LABS: MEAN CORPUSCULAR HEMOGLOBIN 31.2 pg (27.0-34.8); MEAN CORPUSCULAR VOLUME 97.4 fL (80-100); MEAN PLATELET VOLUME 8.5 fL (7.4-10.4); PLATELET COUNT 297 x10^3/uL (130-400); RED BLOOD COUNT 4.21 x10^6/uL (3.82-5.3); RED CELL DISTRIBUTION WIDTH 15.4 % (9.6-15.2)
[2019-03-04 04:29] LABS: ALANINE AMINOTRANSFERASE 33 U/L (12-78); ALBUMIN 2.8 g/dL (3.4-5.0); ANION GAP 8 mmol/L (5-15); CALCIUM 8.5 mg/dL (8.5-10.1); CHLORIDE 112 mmol/L (98-107); CREATININE 0.69 mg/dL (0.55-1.02)
[2019-03-04 04:31] LABS: ALKALINE PHOSPHATASE 107 U/L (45-117); BILIRUBIN,TOTAL 0.4 mg/dL (0.2-1.0); TOTAL PROTEIN 5.9 g/dL (6.4-8.2)
[2019-03-04 04:35] LABS: BASOPHILS # (AUTO) 0.01 x10^3/uL (0-0.1); BASOPHILS % (AUTO) 0 % (0-1); EOSINOPHILS % (AUTO) 0 % (1-7); LYMPHOCYTES # (AUTO) 0.36 x10^3/uL (1-3.4); LYMPHOCYTES % (AUTO) 5 % (22-44); MD SCAN; MONOCYTES # (AUTO) 0.16 x10^3/uL (0.2-0.8); MONOCYTES % (AUTO) 2 % (2-9); NEUTROPHILS # (AUTO) 7.07 x10^3/uL (1.8-6.8); NEUTROPHILS % (AUTO) 93 % (42-75)
[2019-03-04] MEDS ORDERED: MAGNESIUM SULFATE PMX 2GM/50ML 50 ML IV ONE (06:30)
[2019-03-04] MEDS: BUDESONIDE 0.5 MG/2 ML INHA INH SCH ×2 (06:43→18:50)
[2019-03-04] MEDS ORDERED: FLUMAZENIL 0.1 MG/1 ML, 5ML IVPush ONE (07:00)
[2019-03-04] MEDS: FAMOTIDINE 20 MG/2 ML IVPush SCH ×2 (09:09→20:38)
[2019-03-04] MEDS: SODIUM CHLORIDE FLUSH 10ML SYR IVF SCH ×2 (09:09→20:38)
[2019-03-04] MEDS: ALBUTEROL/IPRATROPIUM 2.5MG/0.5MG, 3 ML NPPB SCH ×4 (10:56→22:02)
[2019-03-04] MEDS: SODIUM CHLORIDE 0.9% 1,000 ML IV SCH (11:41)
[2019-03-04] MEDS ORDERED: LORazepam 2 MG/ML, 1ML IVPush PRN (13:30)
[2019-03-04] MEDS: methylPREDNISolone SOD SUCC 40 MG/ML IVPush SCH ×2 (17:48→23:26)
[2019-03-04] MEDS: OXYcodone 5 MG/5 ML ORAL.SOL UDC PO PRN (18:02)
[2019-03-05] MEDS: AMPICILLIN/SULBACTAM 3 GM in SODIUM CHLORIDE 0.9% 100 ML IV SCH ×2 (00:35→06:26)
[2019-03-05] MEDS: ALBUTEROL/IPRATROPIUM 2.5MG/0.5MG, 3 ML NPPB SCH ×3 (02:10→10:00)
[2019-03-05] MEDS: OXYcodone 5 MG/5 ML ORAL.SOL UDC PO PRN ×2 (02:33→08:07)
[2019-03-05] MEDS: INSULIN LISPRO 100 UNITS/ML, PEN SQ-INSULIN SCH ×2 (02:36→08:32)
[2019-03-05 04:17] VITALS: BP 95/47
[2019-03-05 04:28] LABS: MEAN CORPUSCULAR HEMOGLOBIN 32.2 pg (27.0-34.8); MEAN CORPUSCULAR HGB CONC 32.5 g/dL (32.4-35.8); MEAN CORPUSCULAR VOLUME 98.9 fL (80-100); PLATELET COUNT 294 x10^3/uL (130-400); RED BLOOD COUNT 3.87 x10^6/uL (3.82-5.3); RED CELL DISTRIBUTION WIDTH 14.9 % (9.6-15.2)
[2019-03-05 04:37] LABS: ANION GAP 4 mmol/L (5-15); CALCIUM 8.8 mg/dL (8.5-10.1); CHLORIDE 113 mmol/L (98-107); CREATININE 0.65 mg/dL (0.55-1.02)
[2019-03-05 04:59] LABS: BASOPHILS % (AUTO) 0 % (0-1); EOSINOPHILS % (AUTO) 0 % (1-7); LYMPHOCYTES # (AUTO) 0.25 x10^3/uL (1-3.4); LYMPHOCYTES % (AUTO) 2 % (22-44); MD SCAN; MONOCYTES # (AUTO) 0.29 x10^3/uL (0.2-0.8); MONOCYTES % (AUTO) 3 % (2-9); NEUTROPHILS # (AUTO) 10.76 x10^3/uL (1.8-6.8); NEUTROPHILS % (AUTO) 95 % (42-75)
[2019-03-05] MEDS: SODIUM CHLORIDE 0.9% 1,000 ML IV SCH (06:26)
[2019-03-05] MEDS: SODIUM CHLORIDE FLUSH 10ML SYR IVF SCH (08:07)
[2019-03-05] MEDS: methylPREDNISolone SOD SUCC 40 MG/ML IVPush SCH (08:07)
[2019-03-05] MEDS: FAMOTIDINE 20 MG/2 ML IVPush SCH (08:07)
[2019-03-05] MEDS: HEPARIN 5,000 UNITS/ML, 1ML SQ SCH (08:07)
[2019-03-05] MEDS ORDERED: AMOX1TAB61 PO (09:14)
[2019-03-05] MEDS ORDERED: PRED20TA PO (09:14)
[2019-03-05] MEDS: BUDESONIDE 0.5 MG/2 ML INHA INH SCH (10:00)
[2019-03-06] MEDS ORDERED: HYDR4TAB48 PO (20:50)
[2019-03-06] MEDS ORDERED: LORA-445 PO (22:23)
== END 2019-03-05 11:47 | disposition hospice, home (50) | DRG 208 ==
LOC: ED 04:04 → EDIP 04:35 → CCU 06:11
PROVIDERS: ADMIT Family Medicine; ATTEND Family Medicine
PROC: 0BH17EZ Insertion of Endotracheal Airway into Trachea, Via Natural or Artificial Opening (ICD-10-PCS; principal; 2019-03-03)
PROC: 5A1945Z Respiratory Ventilation, 24-96 Consecutive Hours (ICD-10-PCS; 2019-03-03)
DX: J96.01 Acute respiratory failure with hypoxia (principal); J15.9 Unspecified bacterial pneumonia; J44.1 Chronic obstructive pulmonary disease with (acute) exacerbation; E44.0 Moderate protein-calorie malnutrition; J44.0 Chronic obstructive pulmonary disease with (acute) lower respiratory infection; R65.10 Systemic inflammatory response syndrome (SIRS) of non-infectious origin without acute organ dysfunction; J96.02 Acute respiratory failure with hypercapnia; E78.5 Hyperlipidemia, unspecified; E86.0 Dehydration; E86.1 Hypovolemia; F17.200 Nicotine dependence, unspecified, uncomplicated; G89.29 Other chronic pain; M81.0 Age-related osteoporosis without current pathological fracture; I95.9 Hypotension, unspecified; Z51.5 Encounter for palliative care; Z66 Do not resuscitate; Z87.01 Personal history of pneumonia (recurrent); Z90.710 Acquired absence of both cervix and uterus; Z99.81 Dependence on supplemental oxygen; Z90.49 Acquired absence of other specified parts of digestive tract; Z88.5 Allergy status to narcotic agent; Z88.8 Allergy status to other drugs, medicaments and biological substances; Z68.24 Body mass index [BMI] 24.0-24.9, adult
CPT/HCPCS: 31500; 36415; 36600; 71045; 80048; 80053; 80307; 82533; 82803; 82962; 83605; 83735; 83880; 84100; 84145; 84478; 84484; 85025; 87040; 87070; 87081; 87205; 93005; 93306; 94002; 94003; 94640; 96365; 96367; 96375; G0378; J0295; J0456; J0696; J1644; J2250; J2543; J2704; J3010; J3370; J7613; J7620; J7626; J0330; J1815; J2060; J2920; J2930; J3475; J3490; J7030; J7050

== ENCOUNTER 2019-03-06 20:43 | Inpatient (IN) | payer MEDICARE, MEDICAID ==
[~2019-03-06] VITALS: Ht 154.9 cm; Wt 58.1 kg
[~2019-03-06 20:43] MED LIST changes: +AMOX1TAB61 PO
[2019-03-06] MEDS ORDERED: HYDR4TAB48 PO (20:50)
[2019-03-06] MEDS ORDERED: ACETAMINOPHEN 500 MG TABLET PO ONE (21:30)
[2019-03-06 21:41] LABS: INTERNATIONAL NORMALIZED RATIO 1.04 (0.93-1.1); PROTHROMBIN TIME 10.9 Seconds (9.6-11.5)
[2019-03-06 21:42] LABS: ALANINE AMINOTRANSFERASE 77 U/L (12-78); ALBUMIN 2.9 g/dL (3.4-5.0); ANION GAP 3 mmol/L (5-15); CALCIUM 8.5 mg/dL (8.5-10.1); CHLORIDE 107 mmol/L (98-107); CREATININE 0.65 mg/dL (0.55-1.02)
[2019-03-06 21:45] LABS: MEAN CORPUSCULAR HEMOGLOBIN 32.5 pg (27.0-34.8); MEAN CORPUSCULAR HGB CONC 32.9 g/dL (32.4-35.8); MEAN CORPUSCULAR VOLUME 98.7 fL (80-100); MEAN PLATELET VOLUME 8.1 fL (7.4-10.4); PLATELET COUNT 358 x10^3/uL (130-400); RED BLOOD COUNT 4.04 x10^6/uL (3.82-5.3); RED CELL DISTRIBUTION WIDTH 15.2 % (9.6-15.2)
[2019-03-06 21:46] LABS: ALKALINE PHOSPHATASE 81 U/L (45-117); BILIRUBIN,TOTAL 0.6 mg/dL (0.2-1.0); TOTAL PROTEIN 5.5 g/dL (6.4-8.2); TROPONIN I 0.017 ng/mL (0.000-0.045)
--- NOTE | 2019-03-06 21:52 | NUR ---
PT RETURNED FROM RAD AT THIS TIME.
[2019-03-06 21:58] LABS: BASOPHILS # (AUTO) 0.03 x10^3/uL (0-0.1); BASOPHILS % (AUTO) 0 % (0-1); EOSINOPHILS # (AUTO) 0.27 x10^3/uL (0-0.4); EOSINOPHILS % (AUTO) 3 % (1-7); LYMPHOCYTES # (AUTO) 1.37 x10^3/uL (1-3.4); LYMPHOCYTES % (AUTO) 16 % (22-44); MD SCAN; MONOCYTES # (AUTO) 0.84 x10^3/uL (0.2-0.8); MONOCYTES % (AUTO) 10 % (2-9); NEUTROPHILS # (AUTO) 6.31 x10^3/uL (1.8-6.8); NEUTROPHILS % (AUTO) 72 % (42-75)
[2019-03-06] MEDS ORDERED: HYDROmorphone 1 MG/ML, 1ML VIAL ONE (22:16)
[2019-03-06] MEDS ORDERED: LORA-445 PO (22:23)
[2019-03-06] MEDS ORDERED: HYDROmorphone 2 MG/ML, 1ML IVPush PRN (22:30)
[2019-03-06 23:30] VITALS: BP 109/67
[2019-03-07] MEDS ORDERED: POTASSIUM CHLORIDE 20 MEQ TAB.ER.PRT PO ONE (01:00)
[2019-03-07] MEDS ORDERED: ONDANSETRON 2MG/ML, 2ML IVPush PRN (01:00)
[2019-03-07] MEDS ORDERED: BISACODYL 10 MG SUPP PR PRN (01:00)
[2019-03-07] MEDS ORDERED: hydrALAzine 20 MG/ML, 1ML IVPush PRN (01:00)
[2019-03-07] MEDS ORDERED: HYDROmorphone 1 MG/ML, 1ML INJ IV ONE (01:30)
[2019-03-07 02:07] VITALS: BP 132/84
[2019-03-07 06:55] VITALS: BP 112/73
[2019-03-07] MEDS: LORazepam 0.5MG TABLET PO SCH ×2 (08:38→09:58)
[2019-03-07] MEDS: AMOXICILLIN/CLAV 500-125MG TABLET PO SCH ×4 (08:38→21:06)
[2019-03-07] MEDS: HYDROmorphone 2MG TABLET PO SCH ×4 (08:38→21:06)
[2019-03-07] MEDS: ALBUTEROL/IPRATROPIUM 2.5MG/0.5MG, 3 ML NPPB SCH ×4 (08:39→20:00)
[2019-03-07 12:01] VITALS: BP 95/61
[2019-03-07] MEDS ORDERED: FENTANYL PF 250 MCG/5ML ONE (16:16)
[2019-03-07] MEDS ORDERED: MIDAZOLAM 1 MG/ML, 2ML ONE (16:16)
[2019-03-07] MEDS ORDERED: CEFAZOLIN 1,000 MG ONE (16:44)
[2019-03-07] MEDS ORDERED: PHENYLEPHRINE 10 MG/ML ONE (17:06)
[2019-03-07] MEDS ORDERED: FENTANYL PF 100 MCG/2ML IV PRN (17:30)
[2019-03-07] MEDS ORDERED: ONDANSETRON 2MG/ML, 2ML IV PRN (17:30)
[2019-03-07] MEDS ORDERED: hydrALAzine 20 MG/ML, 1ML IV PRN (17:30)
[2019-03-07] MEDS ORDERED: LABETALOL 5MG/ML, 20ML IV PRN (17:30)
[2019-03-07] MEDS ORDERED: OXYcodone 5 MG/5 ML ORAL.SOL UDC PO PRN (17:30)
[2019-03-07] MEDS: HYDROmorphone 2 MG/ML, 1ML IVPush PRN ×2 (17:36→17:44)
[2019-03-07] MEDS ORDERED: HYDROmorphone 2 MG/ML, 1ML ONE (17:41)
[2019-03-07 19:28] VITALS: BP 79/53
[2019-03-07] MEDS: LIDODERM 5% PATCH TD PRN (23:46)
[2019-03-07] MEDS: ACETAMINOPHEN 325 MG TABLET PO PRN (23:46)
[2019-03-08] MEDS: HYDROmorphone 2 MG/ML, 1ML IVPush PRN ×5 (00:03→14:04)
[2019-03-08 00:14] VITALS: BP 89/62
[2019-03-08] MEDS: CEFAZOLIN PMX 1GM/50ML 50 ML IV SCH ×2 (01:00→09:45)
[2019-03-08 04:56] VITALS: BP 102/61
[2019-03-08 05:11] LABS: ANION GAP 5 mmol/L (5-15); CALCIUM 8.3 mg/dL (8.5-10.1); CHLORIDE 102 mmol/L (98-107)
[2019-03-08 05:24] LABS: BASOPHILS # (AUTO) 0.02 x10^3/uL (0-0.1); BASOPHILS % (AUTO) 0 % (0-1); EOSINOPHILS # (AUTO) 0.39 x10^3/uL (0-0.4); EOSINOPHILS % (AUTO) 4 % (1-7); LYMPHOCYTES # (AUTO) 1.18 x10^3/uL (1-3.4); LYMPHOCYTES % (AUTO) 11 % (22-44); MD NO; MEAN CORPUSCULAR HEMOGLOBIN 31.8 pg (27.0-34.8); MEAN CORPUSCULAR HGB CONC 32.7 g/dL (32.4-35.8); MEAN PLATELET VOLUME 8.7 fL (7.4-10.4); MONOCYTES # (AUTO) 1.09 x10^3/uL (0.2-0.8); MONOCYTES % (AUTO) 10 % (2-9); NEUTROPHILS # (AUTO) 8.32 x10^3/uL (1.8-6.8); NEUTROPHILS % (AUTO) 76 % (42-75); PLATELET COUNT 350 x10^3/uL (130-400); RED BLOOD COUNT 4.03 x10^6/uL (3.82-5.3); RED CELL DISTRIBUTION WIDTH 14.6 % (9.6-15.2)
[2019-03-08] MEDS: ALBUTEROL/IPRATROPIUM 2.5MG/0.5MG, 3 ML NPPB SCH ×4 (06:39→20:00)
[2019-03-08 07:00] VITALS: BP 92/54
[2019-03-08] MEDS: AMOXICILLIN/CLAV 500-125MG TABLET PO SCH (08:25)
[2019-03-08] MEDS: LORazepam 0.5MG TABLET PO SCH (08:25)
[2019-03-08] MEDS: HYDROmorphone 2MG TABLET PO SCH ×3 (08:25→21:06)
[2019-03-08] MEDS ORDERED: LIDODERM REMOVE PATCH NOTE XX ONE (11:45)
[2019-03-08 12:10] VITALS: BP 115/71
[2019-03-08 19:31] VITALS: BP 114/70
[2019-03-08] MEDS: ACETAMINOPHEN 325 MG TABLET PO PRN (21:06)
[2019-03-08] MEDS: AMOXICILLIN/CLAV 875-125MG TABLET PO SCH (21:06)
[2019-03-08] MEDS ORDERED: HYDROmorphone 2 MG/ML, 1ML IVPush PRN (23:40)
[2019-03-08] MEDS ORDERED: OMEP20TA62 PO (23:46)
[2019-03-09 00:07] VITALS: BP 152/90
[2019-03-09] MEDS ORDERED: ALUMINUM/MAG/SIMETHICONE 30 ML UDC PO ONE (00:20)
[2019-03-09] MEDS ORDERED: CALCIUM CARBONATE 500 MG TAB.CHEW PO PRN (00:30)
[2019-03-09] MEDS: LIDODERM 5% PATCH TD PRN (00:39)
[2019-03-09] MEDS: HYDROmorphone 2 MG/ML, 1ML IVPush PRN ×2 (00:46→06:44)
[2019-03-09 02:41] VITALS: BP 101/63
[2019-03-09 06:19] LABS: BASOPHILS # (AUTO) 0.02 x10^3/uL (0-0.1); BASOPHILS % (AUTO) 0 % (0-1); EOSINOPHILS # (AUTO) 0.36 x10^3/uL (0-0.4); EOSINOPHILS % (AUTO) 3 % (1-7); LYMPHOCYTES # (AUTO) 1.03 x10^3/uL (1-3.4); LYMPHOCYTES % (AUTO) 10 % (22-44); MD NO; MEAN CORPUSCULAR HEMOGLOBIN 31.4 pg (27.0-34.8); MEAN CORPUSCULAR HGB CONC 32.2 g/dL (32.4-35.8); MEAN CORPUSCULAR VOLUME 97.8 fL (80-100); MEAN PLATELET VOLUME 8.1 fL (7.4-10.4); MONOCYTES # (AUTO) 0.93 x10^3/uL (0.2-0.8); MONOCYTES % (AUTO) 9 % (2-9); NEUTROPHILS # (AUTO) 8.21 x10^3/uL (1.8-6.8); NEUTROPHILS % (AUTO) 78 % (42-75); PLATELET COUNT 351 x10^3/uL (130-400); RED BLOOD COUNT 3.95 x10^6/uL (3.82-5.3)
[2019-03-09 06:28] LABS: ANION GAP 5 mmol/L (5-15); CALCIUM 8.7 mg/dL (8.5-10.1); CHLORIDE 106 mmol/L (98-107); CREATININE 0.47 mg/dL (0.55-1.02)
[2019-03-09] MEDS: ALBUTEROL/IPRATROPIUM 2.5MG/0.5MG, 3 ML NPPB SCH ×2 (07:00→10:28)
[2019-03-09 08:10] VITALS: BP 111/73
[2019-03-09] MEDS: AMOXICILLIN/CLAV 875-125MG TABLET PO SCH (08:52)
[2019-03-09] MEDS: HYDROmorphone 2MG TABLET PO SCH (08:53)
[2019-03-09] MEDS: LORazepam 0.5MG TABLET PO SCH (08:53)
[2019-03-09] MEDS ORDERED: OMEPRAZOLE 20 MG CAPSULE.DR PO SCH (09:00)
[2019-03-09] MEDS ORDERED: ACET325T26 PO (09:38)
[2019-03-09] MEDS ORDERED: IPRA3AMP30 NPPB (09:38)
[2019-03-09] MEDS ORDERED: AMOX1TAB12 PO (09:38)
[2019-03-09 10:46] VITALS: BP 129/75
[2019-03-09] MEDS ORDERED: LIDODERM REMOVE PATCH NOTE XX ONE (12:45)
== END 2019-03-09 12:33 | DRG 956 ==
LOC: ED 20:53 → EDIP 22:26 → 4NOR 23:15
PROVIDERS: ADMIT Family Medicine; ATTEND Family Medicine
PROC: 0QH734Z Insertion of Internal Fixation Device into Left Upper Femur, Percutaneous Approach (ICD-10-PCS; principal; 2019-03-07 16:30)
DX: S72.092A Other fracture of head and neck of left femur, initial encounter for closed fracture (principal); S32.512A Fracture of superior rim of left pubis, initial encounter for closed fracture; J96.10 Chronic respiratory failure, unspecified whether with hypoxia or hypercapnia; J44.0 Chronic obstructive pulmonary disease with (acute) lower respiratory infection; E78.5 Hyperlipidemia, unspecified; E87.6 Hypokalemia; F41.1 Generalized anxiety disorder; G89.29 Other chronic pain; M54.9 Dorsalgia, unspecified; M19.90 Unspecified osteoarthritis, unspecified site; M81.0 Age-related osteoporosis without current pathological fracture; Z66 Do not resuscitate; W18.30XA Fall on same level, unspecified, initial encounter; Y93.01 Activity, walking, marching and hiking; R62.7 Adult failure to thrive; Z68.24 Body mass index [BMI] 24.0-24.9, adult; Z80.0 Family history of malignant neoplasm of digestive organs; Z82.49 Family history of ischemic heart disease and other diseases of the circulatory system; Z82.61 Family history of arthritis; Z87.01 Personal history of pneumonia (recurrent); Z87.81 Personal history of (healed) traumatic fracture; Z87.891 Personal history of nicotine dependence; Z90.710 Acquired absence of both cervix and uterus; Z90.49 Acquired absence of other specified parts of digestive tract; Z88.5 Allergy status to narcotic agent; Y92.092 Bedroom in other non-institutional residence as the place of occurrence of the external cause; Y99.8 Other external cause status
CPT/HCPCS: 36415; 71045; 76000; 80048; 80053; 83735; 84484; 85025; 85610; 93005; 94640; 96374; C1713; G0378; J0690; J1170; J2250; J2405; J3010; J7620; J2370; J7512

== ENCOUNTER 2019-03-29 04:56 | Emergency (ER) | payer MEDICAID, MEDICARE ==
[~2019-03-29] VITALS: Ht 160 cm; Wt 52.0 kg
[~2019-03-29 04:56] MED LIST changes: +ACET325T26 PO; +HYDR4TAB48 PO; +IPRA3AMP30 NPPB; +LORA-445 PO; +OMEP20TA62 PO
--- NOTE | 2019-03-29 05:40 | NUR ---
Per stevenson RN, contact with [facility]: current patient recieving treatment, on-call RN reports multiple calls out this evening from patient for concerns regarding placement and possible relocation to [facility]. Primary metal casting trades worker reports at approximately 0830 and will provide more information. patient financial services specialist to follow.
--- NOTE | 2019-03-29 05:52 | NUR ---
Pt BIB EMS from home, pt denies medical complaints at this time. Reports current hospice pt, states "I don't want to go toa prison". Pt is alert, oriented x4, respirations even and unlabored, vitals stable, speaks in full complete sentneces. Pt is a poor historian, unable to recall current medications or full medical history. Imagingcomplete, waiting for results. Pt is comfortable, call light within reach.
[2019-03-29 05:56] LABS: BASOPHILS # (AUTO) 0.03 x10^3/uL (0-0.1); BASOPHILS % (AUTO) 0 % (0-1); EOSINOPHILS # (AUTO) 0.23 x10^3/uL (0-0.4); EOSINOPHILS % (AUTO) 2 % (1-7); LYMPHOCYTES # (AUTO) 1.61 x10^3/uL (1-3.4); LYMPHOCYTES % (AUTO) 14 % (22-44); MD NO; MEAN CORPUSCULAR HEMOGLOBIN 32.5 pg (27.0-34.8); MEAN CORPUSCULAR HGB CONC 32.8 g/dL (32.4-35.8); MEAN CORPUSCULAR VOLUME 99.3 fL (80-100); MEAN PLATELET VOLUME 7.8 fL (7.4-10.4); MONOCYTES # (AUTO) 1.03 x10^3/uL (0.2-0.8); MONOCYTES % (AUTO) 9 % (2-9); NEUTROPHILS # (AUTO) 8.79 x10^3/uL (1.8-6.8); NEUTROPHILS % (AUTO) 75 % (42-75); PLATELET COUNT 473 x10^3/uL (130-400); RED BLOOD COUNT 4.05 x10^6/uL (3.82-5.3); RED CELL DISTRIBUTION WIDTH 15.8 % (9.6-15.2)
[2019-03-29 06:10] LABS: ALBUMIN 3.4 g/dL (3.4-5.0); ANION GAP 4 mmol/L (5-15); CALCIUM 9.3 mg/dL (8.5-10.1); CHLORIDE 105 mmol/L (98-107)
[2019-03-29 06:14] LABS: ALANINE AMINOTRANSFERASE 26 U/L (12-78); ALKALINE PHOSPHATASE 194 U/L (45-117); BILIRUBIN,TOTAL 0.4 mg/dL (0.2-1.0); CREATININE 0.77 mg/dL (0.55-1.02); TOTAL PROTEIN 6.7 g/dL (6.4-8.2)
--- NOTE | 2019-03-29 06:45 | NUR ---
patient report taken from [facility]. patient apparently a poor historian and history little known. She was apparently at her home in a hotel (unknown) and was concerned about being placed in a alf. patient in bed, resting quietly. no s/s of distress. will monitor. awaiting ss to arrive and discuss with hospice team to discuss plan.
--- NOTE | 2019-03-29 06:51 | NUR ---
checked on patient who states she is here because she had surgery on her left him 08 of march and has pain. she has surgical scars on left hip that are not red, no drainage, not warm. repositioned. patient on monitor. patient states she has frequent anxiety and panic attacks, but does not recall what brought her here to ER.
[2019-03-29 06:53] VITALS: BP 92/56
--- NOTE | 2019-03-29 07:09 | NUR ---
checked with MD Cristina and urine still needs collected. straight cath'd patient. sent to lab. left msg at [phone] for ss/case management consult
--- NOTE | 2019-03-29 07:27 | NUR ---
patient is wanting dilaudid. will let md know. states pain in back a 9 of 10. chronic. aching.
--- NOTE | 2019-03-29 07:37 | NUR ---
patient constantly calling out for dilaudid. tried repositioning x 3. tried explaining to her we are waiting on psychologist social. patient inconsolable. no orders received for dilaudid.
[2019-03-29 07:50] LABS: MICROSCOPIC INDICATED
[2019-03-29 08:03] LABS: CULTURE INDICATED? NO
--- NOTE | 2019-03-29 08:30 | NUR ---
patient got up and is demanding to leave. patient is angry and states she thinks she is in a basement and wants to go home. encouraged her to stay that we are working on calling hospice to get her home. she is swearing at me. got md reuben to assess for ama departure, we are working on contacting hospice.
--- NOTE | 2019-03-29 08:33 | NUR ---
patient refusing monitoring. got in chair and refusing to get in bed.
--- NOTE | 2019-03-29 08:45 | NUR ---
patient refusing to stay. patient got herself dressed and refusing to stay. md came and we talked to her about staying and hospice coming, but she refused, signed ama paper work and left.
--- NOTE | 2019-03-29 08:52 | NUR ---
spoke w/ [place] from hospice who states pt okay to d/c home and hospice will follow up w/ pt tomorrow. EPS will be called for pt as well. Dr. Evans notified. pt no longer in hospital to be notified of poc as pt left ama.
[2019-04-02] MEDS ORDERED: SENN1TAB19 PO (11:56)
[2019-04-02] MEDS ORDERED: SIME80TA15 PO (11:56)
[2019-04-02] MEDS ORDERED: ACET325T26 PO (11:56)
[2019-04-02] MEDS ORDERED: NITR100C6 PO (11:56)
[2019-04-02] MEDS ORDERED: LACT20SO13 PO (11:56)
[2019-04-02] MEDS ORDERED: MELA3TAB2 PO (11:56)
== END 2019-03-29 08:45 | disposition left against medical advice (07) ==
LOC: ED 08:41
DX: K56.41 Fecal impaction (principal); F41.1 Generalized anxiety disorder; J44.9 Chronic obstructive pulmonary disease, unspecified; E78.5 Hyperlipidemia, unspecified
CPT/HCPCS: 36415; 71045; 74018; 80053; 81001; 85025; 93005; 99284

== ENCOUNTER 2019-03-29 20:34 | Observation (INO) | payer MEDICARE ==
[~2019-03-29] VITALS: Ht 152.4 cm; Wt 52.3 kg
[2019-04-03 13:15] VITALS: BP 104/68
== END 2019-04-03 15:15 | disposition home or self-care (01) ==
LOC: ED 21:43 → INTOOBSV 22:07 → EDIP 22:07 → 4NOR 22:50
PROVIDERS: ADMIT Internal Medicine; ATTEND Internal Medicine
DX: A41.9 Sepsis, unspecified organism (principal); N39.0 Urinary tract infection, site not specified; J96.10 Chronic respiratory failure, unspecified whether with hypoxia or hypercapnia; J44.9 Chronic obstructive pulmonary disease, unspecified; G93.41 Metabolic encephalopathy; M54.5 Low back pain; G89.29 Other chronic pain; E78.5 Hyperlipidemia, unspecified; M81.0 Age-related osteoporosis without current pathological fracture; R53.81 Other malaise; E87.1 Hypo-osmolality and hyponatremia; K59.00 Constipation, unspecified; R41.82 Altered mental status, unspecified; Z88.5 Allergy status to narcotic agent; Z79.899 Other long term (current) drug therapy; Z90.710 Acquired absence of both cervix and uterus; Z87.891 Personal history of nicotine dependence; Z63.8 Other specified problems related to primary support group; Z74.2 Need for assistance at home and no other household member able to render care
CPT/HCPCS: 36415; 80048; 81001; 84145; 85025; 86480; 87077; 87086; 87186; 93005; 96365; 96366; 96372; 96375; 96376; 97162; 99284; G0378; J0696; J1644; J1885; J7030

== ENCOUNTER 2019-04-15 04:42 | Emergency (ER) | payer MEDICARE ==
[~2019-04-15] VITALS: Ht 152.4 cm; Wt 48.1 kg
[~2019-04-15 04:42] MED LIST changes: +LACT20SO13 PO; +MELA3TAB56 PO; +NITR100C6 PO; +SENN-193 PO; +SIME80TA15 PO
[2019-04-15 05:31] LABS: BASOPHILS # (AUTO) 0.02 x10^3/uL (0-0.1); BASOPHILS % (AUTO) 0 % (0-1); EOSINOPHILS # (AUTO) 0.28 x10^3/uL (0-0.4); EOSINOPHILS % (AUTO) 3 % (1-7); LYMPHOCYTES # (AUTO) 0.91 x10^3/uL (1-3.4); LYMPHOCYTES % (AUTO) 9 % (22-44); MD NO; MEAN CORPUSCULAR HEMOGLOBIN 32.3 pg (27.0-34.8); MEAN CORPUSCULAR HGB CONC 33.2 g/dL (32.4-35.8); MEAN CORPUSCULAR VOLUME 97.3 fL (80-100); MEAN PLATELET VOLUME 7.5 fL (7.4-10.4); MONOCYTES # (AUTO) 0.71 x10^3/uL (0.2-0.8); MONOCYTES % (AUTO) 7 % (2-9); NEUTROPHILS # (AUTO) 8.59 x10^3/uL (1.8-6.8); NEUTROPHILS % (AUTO) 82 % (42-75); PLATELET COUNT 522 x10^3/uL (130-400); RED CELL DISTRIBUTION WIDTH 14.3 % (9.6-15.2)
[2019-04-15 05:46] LABS: ALBUMIN 3.4 g/dL (3.4-5.0); ANION GAP 6 mmol/L (5-15); CALCIUM 9.3 mg/dL (8.5-10.1); CHLORIDE 108 mmol/L (98-107)
[2019-04-15 05:47] LABS: CREATININE 0.63 mg/dL (0.55-1.02)
--- NOTE | 2019-04-15 05:49 | NUR ---
PT STATES SHE IS UNABLE TO PRODUCE A URINE SAMPLE AT THIS TIME. CHATO MARSH'D PO FLUIDS. PT GIVEN CUP OF WATER. PT DENIES FURTHER NEEDS AT THIS TIME.
[2019-04-15] MEDS ORDERED: HYDROmorphone 2MG TABLET ONE (06:14)
--- NOTE | 2019-04-15 06:18 | NUR ---
pt out of bed complaining of "worst pain ever". unable to find a comfortable position. pa informed. pt medicated per nov.
[2019-04-15] MEDS ORDERED: HYDROmorphone 2MG TABLET PO ONE (06:30)
--- NOTE | 2019-04-15 06:32 | NUR ---
pt resting in bed, pt a/o x4 and speaking full sentences at contact.
--- NOTE | 2019-04-15 06:50 | NUR ---
PT TOOK MUCH CONVINCING HOWEVER HAS AGREED TO RETURN TO HER [facility] FOR HER HOSPICE CARE.
[2019-04-15 06:51] VITALS: BP 120/74
--- NOTE | 2019-04-15 07:06 | NUR ---
BEDSIDE REPORT RECEIVED FROM JACQUELINE. PT DENIES ANY NEEDS OR CONCERNS AT THIS TIME. AWAITING TRANSPORTATION, DISCHARGE PAPERWORK AT BEDSIDE.
--- NOTE | 2019-04-15 07:22 | NUR ---
REPORT GIVEN TO CARMEL CYR, AT HOME FACILITY.
--- NOTE | 2019-04-15 08:18 | NUR ---
CRISTINA ARRIVED TO TRANSPORT PT. PT NOT NOTED TO BE IN ROOM. GOWN ON BED, CLOTHING AND WALKER GONE. SECURITY MADE AWARE.
--- NOTE | 2019-04-15 09:38 | NUR ---
ATTTEMPTED TO CALL PHONE NUMBER ON FACE SHEET AND NO ANSWER. FOLLOWUP OF PATIENT
--- NOTE | 2019-04-15 10:05 | NUR ---
SNF CALLED [phone]- PATIENT IS BACK AT HOME AND SAFE WITH SNF.
[2019-04-23] MEDS ORDERED: PRED20TA PO (15:08)
[2019-04-23] MEDS ORDERED: BISA5TAB5 PO (15:20)
[2019-04-23] MEDS ORDERED: HYDR4TAB PO (15:20)
[2019-04-23] MEDS ORDERED: TRAZ50TA66 PO (15:20)
[2019-04-23] MEDS ORDERED: HYDR2TAB40 PO (15:20)
[2019-05-19] MEDS ORDERED: RISP0.5T24 PO (12:09)
== END 2019-04-15 08:21 | disposition home or self-care (01) ==
LOC: ED 05:33
DX: S29.012A Strain of muscle and tendon of back wall of thorax, initial encounter (principal); S22.039A Unspecified fracture of third thoracic vertebra, initial encounter for closed fracture; S22.069A Unspecified fracture of T7-T8 vertebra, initial encounter for closed fracture; S22.089A Unspecified fracture of T11-T12 vertebra, initial encounter for closed fracture; F41.1 Generalized anxiety disorder; J44.9 Chronic obstructive pulmonary disease, unspecified; E78.5 Hyperlipidemia, unspecified; X58.XXXA Exposure to other specified factors, initial encounter; Y93.89 Activity, other specified; Y92.89 Other specified places as the place of occurrence of the external cause; Y99.8 Other external cause status
CPT/HCPCS: 36415; 71046; 80048; 82040; 85025; 99284